=== PATIENT | male | born 1955 | race Caucasian/White ===

== ENCOUNTER 2020-05-31 08:55 | Emergency (ER) | payer BC ==
[~2020-05-31] VITALS: Ht 172.7 cm; Wt 78.0 kg
--- NOTE | 2020-05-31 09:01 | Emergency Room Report ---
History of Present Illness General Chief Complaint: SOB Source: Patient, PMD - Dr. Jacobs ID Present Illness HPI Patient is a 65-year-old male past medical history of HIV on antiretrovirals with undetectable viral load who presents to the ER complaining of shortness of breath. Patient was sent from Dr. Jacobs's office who is an infectious disease doctor. Patient has been complaining of fever, generalized weakness, chest pain, shortness of breath and cough for the past few days. Patient tested positive for COVID-19. He states that his mother, and brother are also ill with the virus. He states that he became ill from his cousin. Patient also complains of nonbloody diarrhea. He denies any abdominal pain, nausea or vomiting. Patient denies any smoking. He denies any lower extremity pain or edema. Allergies: Coded Allergies: No Known Allergies (Unverified , 05/31/20) Patient History Reviewed Nursing Documentation: PMH: Agreed; PSxH: Agreed Review of Systems All Other Systems: negative except mentioned in HPI Physical Exam Sp02 EP Interpretation: reviewed, normal - 96% on room air General Appearance: no apparent distress, alert, GCS 15, non-toxic Head: normocephalic, atraumatic Eyes: bilateral eye normal inspection, bilateral eye PERRL ENT: dry mucus membranes Neck: full range of motion, supple/symm/no masses Respiratory: no accessory muscle use, rhonchi, other - Mildly tachypneic respiratory rate approximately 28 respirations per minute Cardiovascular #1: regular rate, rhythm Gastrointestinal: non tender, soft, no guarding, no rebound Rectal: deferred Musculoskeletal: normal range of motion, no calf tenderness, no lower extremity edema Neurologic: manager air III-XII nml as tested, oriented x3 Psychiatric: no suicidal/homicidal ideation Skin: no rash Medical Decision Making Diagnostic Impression: Primary Impression: Pneumonia due to COVID-19 virus Additional Impressions: Tachypnea Leukopenia Acute renal failure ER Course Patient has a reported positive COVID-19 test from outside facility. Patient is persistently tachypneic. Patient's oxygen saturation in the high 90s on room air. Patient's chest x-ray demonstrates bilateral lower lobe patchy pulmonary i nfiltrates. Patient started on azithromycin as well as ceftriaxone for his pneumonia. Patient's lactate is normal and D-dimer is negative. Will hold on steroids or any anticoagulation for that reason at this time. Patient does have a history of HIV. Patient's labs demonstrate leukopenia with white count of 3 and acute renal insufficiency creatinine of 1.6. Patient given 1 L of IV fluids. Will hold on excessive fluid resuscitation due to risk of ARDS from COVID-19. Patient to be admitted. Laboratory Tests Test 05/31/20 09:20 White Blood Count 3.5 K/UL (4.8-10.8) L Red Blood Count 6.12 M/UL (4.70-6.10) H Hemoglobin 18.7 G/DL (14.2-18.0) *H Hematocrit 54.6 % (42.0-52.0) H Mean Corpuscular Volume 89 FL (80-99) Mean Corpuscular Hemoglobin 30.5 PG (27.0-31.0) Mean Corpuscular Hemoglobin Concent 34.2 G/DL (32.0-36.0) Red Cell Distribution Width 11.8 % (11.6-14.8) Platelet Count 205 K/UL (150-450) Mean Platelet Volume 6.9 FL (6.5-10.1) Neutrophils (%) (Auto) 53.2 % (45.0-75.0) Lymphocytes (%) (Auto) 37.2 % (20.0-45.0) Monocytes (%) (Auto) 8.5 % (1.0-10.0) Eosinophils (%) (Auto) 0.4 % (0.0-3.0) Basophils (%) (Auto) 0.8 % (0.0-2.0) Prothrombin Time 11.4 SEC (9.30-11.50) Prothrombin Time INR 1.0 (0.9-1.1) Activated Partial Thromboplast Time 34 SEC (23-33) H D-Dimer 0.24 mg/L FEU (0.00-0.49) Sodium Level 136 MMOL/L (136-145) Potassium Level 4.4 MMOL/L (3.5-5.1) Chloride Level 101 MMOL/L (98-107) Carbon Dioxide Level 27 MMOL/L (21-32) Anion Gap 8 mmol/L (5-15) Blood Urea Nitrogen 17 mg/dL (7-18) Creatinine 1.6 MG/DL (0.55-1.30) H Estimated Glomerular Filtration Rate 43.9 mL/min (>60) Glucose Level 92 MG/DL (74-106) Lactic Acid Level 0.70 mmol/L (0.4-2.0) Calcium Level 8.6 MG/DL (8.5-10.1) Magnesium Level 1.8 MG/DL (1.8-2.4) Ferritin 408 NG/ML (8-388) H Total Bilirubin 0.7 MG/DL (0.2-1.0) Aspartate Amino Transferase (AST) 73 U/L (15-37) H Alanine Aminotransferase (ALT) 66 U/L (12-78) Alkaline Phosphatase 57 U/L (46-116) Lactate Dehydrogenase 207 U/L (81-234) Total Creatine Kinase 126 U/L (26-308) Troponin I 0.000 ng/mL (0.000-0.056) C-Reactive Protein, Quantitative 7.1 mg/dL (0.00-0.90) H Pro-B-Type Natriuretic Peptide 15 pg/mL (0-125) Total Protein 8.6 G/DL (6.4-8.2) H Albumin 3.8 G/DL (3.4-5.0) Globulin 4.8 g/dL Albumin/Globulin Ratio 0.8 (1.0-2.7) L EKG Diagnostic Results Troponin ordered: Yes When was troponin ordered?: May 31, 2020 EKG Time: 09:25 EP Interpretation: Radha Oglesby MD Rate: normal - 84 bpm Rhythm: NSR ST Segments: no acute changes ASA given to the pt in ED: No Rhythm Strip Diag. Results Rhythm Strip Time: 09:30 EP Interpretation: yes - Radha Oglesby MD Rate: 89 bpm Rhythm: NSR, no PVC's, no ectopy Chest X-Ray Diagnostic Results Chest X-Ray Diagnostic Results : Chest X-Ray Ordered: Yes # of Views/Limited/Complete: 1 View Indication: Shortness of Breath EP Interpretation: Yes Interpretation: no effusion, no pneumothorax, other - Bilateral lower lobe patchy infiltrates Impression: Other - Pneumonia Electronically Signed by: Radha Oglesby MD Disposition: ADMITTED INPATIENT Condition: Critical Physician Consult: Dr. Jacobs ID and Dr Timmons admitting MD Additional Instructions: Please note that this report is being documented using [employer] technology. This can lead to erroneous entry secondary to incorrect interpretation by the dictating instrument. Radha Oglesby M.D. May 31, 2020 09:01
[2020-05-31 09:10] VITALS: BP 160/80
--- NOTE | 2020-05-31 09:10 | NUR ---
ED Nurse Note: Pt walked in from his appointment from [facility] with Dr Cavazos who sent him dt concerns oh his recent positive covid test. Pt is resting comfortably although tachypnic at 35 bpm on room air. SPO2 100%. He does not want O2 support for comfort. He is able to speak in full sentances and explained that he has been experiencing diarrhea for the last two days. Vital signs stable as documented. Covid precautions are maintained.
[2020-05-31] MEDS: cefTRIAXone 1 GM in NS 55 ML IVPB ONE (09:31)
[2020-05-31 09:51] LABS: BASOPHILS % (AUTO) 0.8 % (0.0-2.0); EOSINOPHILS % (AUTO) 0.4 % (0.0-3.0); HEMATOCRIT 54.6 % (42.0-52.0); LYMPHOCYTES % (AUTO) 37.2 % (20.0-45.0); MEAN CORPUSCULAR VOLUME 89 FL (80-99); MONOCYTES % (AUTO) 8.5 % (1.0-10.0); NEUTROPHILS % (AUTO) 53.2 % (45.0-75.0); PLATELET COUNT 205 K/UL (150-450); RED BLOOD COUNT 6.12 M/UL (4.70-6.10); RED CELL DISTRIBUTION WIDTH 11.8 % (11.6-14.8); WHITE BLOOD COUNT 3.5 K/UL (4.8-10.8)
[2020-05-31 09:57] LABS: HEMOGLOBIN 18.7 G/DL (14.2-18.0)
[2020-05-31] MEDS: Azithromycin 500 MG in NS 275 ML IV ONE (10:01)
[2020-05-31 10:03] LABS: ANION GAP 8 mmol/L (5-15); BLOOD UREA NITROGEN 17 mg/dL (7-18); CALCIUM 8.6 MG/DL (8.5-10.1); CARBON DIOXIDE 27 MMOL/L (21-32); CHLORIDE 101 MMOL/L (98-107); CREATININE 1.6 MG/DL (0.55-1.30); POTASSIUM 4.4 MMOL/L (3.5-5.1); SODIUM 136 MMOL/L (136-145)
[2020-05-31 10:13] VITALS: BP 156/89
[2020-05-31 10:21] LABS: ALANINE AMINOTRANSFERASE 66 U/L (12-78); ALBUMIN 3.8 G/DL (3.4-5.0); ALBUMIN/GLOBULIN RATIO 0.8 (1.0-2.7); ALKALINE PHOSPHATASE 57 U/L (46-116); ASPARTATE AMINO TRANSFERASE 73 U/L (15-37); BILIRUBIN,TOTAL 0.7 MG/DL (0.2-1.0); CREATINE KINASE 126 U/L (26-308); FERRITIN 408 NG/ML (8-388); LACTATE DEHYDROGENASE 207 U/L (81-234)
[2020-05-31] MEDS: Acetaminophen 500mg (ES) tab ORAL ONE (10:26)
[2020-05-31] MEDS ORDERED: PRAVASTATIN SOD20 M1 ORAL (11:10)
[2020-05-31] MEDS ORDERED: FLOMAX0.4 MG ORAL (11:10)
[2020-05-31] MEDS ORDERED: FENOFIBRATE43 MG ORAL (11:10)
--- NOTE | 2020-05-31 12:00 | NUR ---
ED Nurse Note: Pt expresses his wish to leave AMA with RN and go to [facility]. Relayed to ER MD. Pt is axox4 and is resting comfortably in the gurney. No chest pain and no distress noted.
[2020-05-31 12:20] VITALS: BP 147/84
--- NOTE | 2020-05-31 12:20 | NUR ---
AMA: SEE AMA FORM. Pt wants to leave AMA to go get admitted at [facility] with his primary MD. Pt made aware of risks of leaving and benefits of staying and still patient wants to leave. ED MD spoke with patient. All vitals stable as documented. A+Ox4 speaking in complete sentences. IV and ID band removed. Pt signed AMA form and given copy of form. Pt reports that he plans to go immediately to [facility] after leaving. Pt showing no signs of distress at this time with O2 sat of 99% on room air. Pt dishcarged safely with steady gait.
--- NOTE | 2020-05-31 13:00 | Consultation ---
DATE OF CONSULTATION: 05/31/2020 INFECTIOUS DISEASE CONSULTATION CONSULTING PHYSICIAN: Renan Marte MD. REFERRING PHYSICIAN: Kevin Peck MD. REASON FOR CONSULTATION: COVID-19 pneumonia. HISTORY OF PRESENTING ILLNESS: This is a 65-year-old gentleman with history of HIV on antiretrovirals, CD4 of 800, viral load undetectable, who comes in with fever, cough along with shortness of breath, and diarrhea. He was found to have COVID-19 and an Infectious Diseases consultation has been obtained for antibiotics. PAST MEDICAL HISTORY: History of HIV. No history of other opportunistic infections like PCP, shingles, hepatitis A, B or C. SOCIAL HISTORY: He does not smoke, drink, or use drugs. FAMILY HISTORY: Positive for heart disease in his father. REVIEW OF SYSTEMS: RESPIRATORY: He has fever and chills. He has cough. He has shortness of breath. No chest pain. CARDIAC: No chest pain. No palpitation. No dizziness. No syncope. GASTROINTESTINAL: No nausea. No vomiting. No abdominal pain. He does have diarrhea. MEDICATIONS: As an inpatient, he has received ceftriaxone, azithromycin, and Tylenol. ALLERGIES: No known drug allergies. PHYSICAL EXAMINATION: VITAL SIGNS: Temperature 99.1, T-max of 100.6, pulse 85, respiratory rate 30, blood pressure 156/89. O2 saturation of 96% on room air. Examination deferred due to COVID-19. LABORATORY DATA: White count 3.5, hemoglobin 18.7, hematocrit 54.6, MCV 89, platelet count 205,000, neutrophils of 53%. Sodium 136, potassium 4.4, chloride 101, bicarb 27, BUN 17, creatinine 1.6. Glucose 92. Calcium 8.6. Ferritin 408. Total bilirubin 0.7, AST 73, ALT 66, alkaline phosphatase 57. LDH 207. CK 126. Troponin 0. C-reactive protein 7.1. Total protein 8.6, albumin 3.8. Chest x-ray showed bilateral lower lobe patchy pulmonary infiltrates. ASSESSMENT: This is a 65-year-old gentleman with history of HIV, CD4 of 800, viral load undetectable, who comes in with fever, cough, shortness of breath and is found to have, 1. COVID-19 pneumonia. The patient is on room air with 96% O2 saturation. 2. HIV. T-cell count of 800. P 1. start ivermectin benefits outweigh risks 2. start dexamethasone 3. continue isolation I would like to thank Dr. Peck for this consultation. Renan Marte M.D. DR: ITZEL JOB#: [id number] CC: ASHLEE
--- NOTE | 2020-05-31 16:45 | Diagnostic Imaging Report ---
Indication: Shortness of breath Technique: One view of the chest Comparison: 06/03/2006 Findings: Lungs and pleural spaces are clear. Heart size is normal. No significant change Impression: No acute process
== END 2020-05-31 12:20 | disposition other institution (70) ==
LOC: EMR 09:42
DX: U07.1 COVID-19 (principal); J12.89 Other viral pneumonia; R06.82 Tachypnea, not elsewhere classified; D72.819 Decreased white blood cell count, unspecified; N17.9 Acute kidney failure, unspecified
CPT/HCPCS: 36415; 71045; 80053; 82550; 82728; 83605; 83615; 83735; 83880; 84484; 85025; 85379; 85610; 85730; 86140; 87040; 93005; 96365; 96367; 99285; J0456; J0696; J7050